=== PATIENT | female | born 1945 | race Caucasian/White ===

== ENCOUNTER 2016-10-06 17:24 | Inpatient (IN) ==
[2016-10-06] MEDS ORDERED: 0.9 % Sodium Chloride 500 ML IVC ONE (17:41)
[2016-10-06] MEDS ORDERED: Ondansetron 4 MG/2 ML VIAL IVP ONE (17:42)
[2016-10-06] MEDS ORDERED: Tdap (Boostrix) Vaccine 0.5 ML SYRINGE IM ONE (17:42)
[2016-10-06] MEDS ORDERED: *HR* Morphine 2 MG/ML SYRINGE IVP ONE (17:43)
[2016-10-06 18:45] LABS: Basophils # 0.1 K/mcL (0.0-0.2); Eosinophils # 0.2 K/mcL (0.0-0.6); Eosinophils % 2.6 %; Hematocrit 35.3 % (35.3-44.9); Hemoglobin 11.6 g/dL (11.5-15.4); Immature Granulocytes % 0.1 % (0-4); Immature Platelets 6.8 % (1.1-6.1); Lymphocytes # 1.7 K/mcL (0.6-4.6); Lymphocytes % 23.3 %; Mean Corpuscular HGB Conc 32.9 g/dL (31.6-35.5); Mean Corpuscular Hemoglobin 29.4 pg (28.0-33.3); Mean Corpuscular Volume 89.4 fL (83.0-100.0); Mean Platelet Volume 12.3 fL (9.4-12.4); Monocytes # 0.5 K/mcL (0.0-1.3); Monocytes % 6.6 %; Neutrophils # 4.8 K/mcL (1.6-8.9); Platelet Count 149 K/mcL (140-400); Red Blood Count 3.95 M/mcL (3.82-4.97); Red Cell Distribution Width 12.8 % (11.5-14.5); Segmented Neutrophils % 66.4 %
[2016-10-06 18:58] LABS: Calcium 9.4 mg/dL (8.6-10.8); Potassium 4.3 mEq/L (3.5-4.5)
--- NOTE | 2016-10-06 18:58 | Emergency Department Note ---
Disposition Clinical Impression: Troponin level elevated Syncope Qualifiers: Encounter type: initial encounter Disposition: Admitted As Inpatient Condition: Fair Referrals: NO,PCP [Primary Care Provider] - Forms: ED Satisfaction Letter Syncope HPI - General Chief Complaint: ED Fall Stated Complaint: fall Time Seen by Provider: 10/06/16 17:35 Source: EMS Limitations: no limitations Nursing Notes Reviewed: Yes Vital Signs Reviewed: Yes - History of Present Illness HPI Narrative: Patient presents with her daughter who helps with the history. The patient did have some lightheadedness while she was in the car and got to a store and the patient had lightheadedness and then had a syncopal episode. Had a few myoclonic jerks afterwards. Was confused for 8 or 9 minutes after. No urinary incontinence. No biting of the tongue or blood in the mouth. Patient denies any unilateral numbness or weakness of the extremities, slurred speech, facial droop or confusion. Does have pain in the head in the left forehead area and daughter notes a indentation in this area. The patient complains of significant discomfort at this location. She denies any neck pain. Daughter confirms the patient is not confused. The patient does not have any pain in the chest, or back. Does have some upper abdominal pain. She denies any recent vomiting or diarrhea but did have some one month ago. She has had some episode of dry heaves since the syncope but none immediately prior to the syncope. No blood in the urine or stool. Social history: Smoker in the past but no longer smoking. No alcohol. - Related Data Home Medications Medication Instructions Recorded Confirmed Amitriptyline [Elavil] 25 mg PO HS 10/06/16 10/06/16 Amlodipine Besylate 10 mg PO DAILY 10/06/16 10/06/16 Insulin Glargine,Hum.rec.anlog 35 - 50 units SQ HS 10/06/16 10/06/16 [Toujeo Solostar] Letrozole [Femara] 2.5 mg PO DAILY 10/06/16 10/06/16 Lisinopril [Zestril] 20 mg PO DAILY 10/06/16 10/06/16 Pravastatin Sodium [Pravachol] 80 mg PO HS 10/06/16 10/06/16 Allergies Allergy/AdvReac Type Severity Reaction Status Date / Time metformin Allergy Vomiting Verified 10/06/16 17:52 Penicillins Allergy Anaphylaxis Verified 10/06/16 17:52 Sulfa (Sulfonamide Allergy Anaphylaxis Verified 10/06/16 17:52 Antibiotics) Review of Systems: Constitutional: No fever Vision: No blurred vision ENT: No rhinorrhea Respiratory: No cough Allergic: No allergies : No blood in urine GI: No blood in stool Hematologic: No bruising Dermatologic: No skin rash Musculoskeletal: +pain in the extremities in the left distal forearm and bilateral knees Neuro: No numbness of the extremities Past Medical History - Past Medical History Medical history: Reports: cancer, CVA, diabetes Psychiatric history: Reports: no psych history - Social History Smoking Status: Former smoker Smokeless Tobacco Status: No Alcohol use: Reports: none Drug use: Reports: none Physical Exam CONSTITUTIONAL: Well-appearing; well-nourished; A&O X3, in no apparent distress HEAD: Normocephalic; there is a slight indentation over the left temporal area which is tender to palpation. No ecchymosis. No palpable fracture EYES: PERRL, EOMI, no scleral icterus NOSE: The nose is normal in appearance without rhinorrhea NECK: Supple without rigidity, no ABELINO, no pain with palpation posterior cervical spine RESP: Normal chest excursion with respiration; breath sounds clear and equal bilaterally; no wheezes, rhonchi, or rales CARD: Regular rhythm, without murmurs, rub or gallop ABD: Non-distended; non-tender, soft, without rigidity, rebound or guarding, Normal appearance without ecchymosis SKIN: Normal for age and race; warm and dry; no apparent lesions, no rash NEUROLOGICAL: Patient is alert and oriented times three. Cranial nerves III- XII are intact. Sensory and motor functions are intact. Strength is 5/5 for flexion and extension in all 4 extremities. Patellar DTRS are equal and intact. Finger to nose testing is equal and normal bilaterally. Extremities: There is some swelling anterior to the left knee with a superficial abrasion as well the patient does have a minimal skin tear over the left distal forearm lateral aspect but no pain on palpation of the bony prominence. Pulses are 2+ and equal 4 extremities - General Limitations: no limitations General appearance: alert Course Vital Signs Temperature 98.3 F 10/06/16 17:43 Pulse Rate 84 10/06/16 17:43 Respiratory Rate 18 10/06/16 17:43 Blood Pressure 196/88 07/26/17 17:43 O2 Sat by Pulse Oximetry 100 10/06/16 17:43 Temperature 98.3 F 10/06/16 17:43 Pulse Rate 84 10/06/16 19:25 Respiratory Rate 18 10/06/16 19:25 Blood Pressure 195/94 10/06/16 19:25 O2 Sat by Pulse Oximetry 97 10/06/16 19:25 Oxygen Delivery Oxygen Delivery Room Air Syncope - [facility] Narrative Medical decision making narrative: Labs, head CT, EKG is done and this does show a normal sinus rhythm with a rate of 81 without acute ischemic change. No evidence of Brugada, hypertrophic cardiomyopathy, prolonged QT or WPW. Patient is not confused. X-ray left knee will be done. Chest x-ray without acute abnormality. The patient will be admitted. I do not suspect seizure. 1857 Case is discussed with the hospitalist and the patient is accepted for admission. Concern for possible arrhythmia with her history today of syncope. The patient does have a minimally elevated troponin which can be further followed as a inpatient. I did review the patient's labs and head CT. 2017 - Medical Records Medical records reviewed: Yes I reviewed the patient's medical records. - Lab Data Lab results reviewed: Yes I reviewed the patient's lab results. Result diagrams: 10/06/16 17:51 10/06/16 17:51 Lab Results 10/06/16 10/06/16 10/06/16 Range/Units 17:51 17:51 17:51 WBC 7.2 (4.3-11.1) K/mcL RBC 3.95 (3.82-4.97) M/mcL Hgb 11.6 (11.5-15.4) g/dL Hct 35.3 (35.3-44.9) % MCV 89.4 (83.0-100.0) fL MCH 29.4 (28.0-33.3) pg MCHC 32.9 (31.6-35.5) g/dL RDW 12.8 (11.5-14.5) % Plt Count 149 (140-400) K/mcL MPV 12.3 (9.4-12.4) fL Immature Gran % 0.1 (0-4) % Seg Neutrophils % 66.4 % Lymphocytes % 23.3 % Monocytes % 6.6 % Eosinophils % 2.6 % Basophils % 1.0 % Neutrophils # 4.8 (1.6-8.9) K/mcL Lymphocytes # 1.7 (0.6-4.6) K/mcL Monocytes # 0.5 (0.0-1.3) K/mcL Eosinophils # 0.2 (0.0-0.6) K/mcL Basophils # 0.1 (0.0-0.2) K/mcL Immature Plt Fraction 6.8 H (1.1-6.1) % Sodium 138 (136-145) mEq/L Potassium 4.3 (3.5-4.5) mEq/L Chloride 104 (98-109) mEq/L Carbon Dioxide 29 (19-29) mEq/L BUN 34 H (7-20) mg/dL Creatinine 1.24 H (0.57-1.11) mg/dL Est GFR ( Amer) 51 L (> 60) Est GFR (Non-Af Amer) 42 L (> 60) BUN/Creatinine Ratio 27 H (6-26) Glucose 252 H (70-99) mg/dL Calculated Osmolality 302 H (280-300) Calcium 9.4 (8.6-10.8) mg/dL Total Bilirubin (0.2-1.2) mg/dL Direct Bilirubin (0.0-0.5) mg/dL Indirect Bilirubin (0.0-1.2) mg/dL AST (5-34) Units/L ALT (0-55) Units/L Alkaline Phosphatase (38-126) Units/L Troponin I 0.04 H* (0-0.03) ng/mL Serum Total Protein (6.0-8.3) g/dL Albumin (3.5-5.0) g/dL Globulin (2.4-3.5) g/dL Albumin/Globulin Ratio (1.1-2.2) Urine Color (Yellow) Urine Clarity (Clear) Urine pH (5.0-8.0) pH Units Ur Specific Elfrida (1.010-1.025) Urine Protein (Neg-Trace) mg/dL Urine Glucose (UA) (Normal) mg/dL Urine Ketones (Negative) mg/dL Urine Blood (Negative) Urine Nitrite (Negative) Urine Bilirubin (Negative) Urine Urobilinogen (Normal) mg/dL Ur Leukocyte Esterase (Negative) Urine Microscopic RBC (0-3) per hpf Urine Microscopic WBC (0-3) per hpf Ur Squamous Epith Cells (None-Few) per lpf Urine Bacteria (None-Few) per hpf Hyaline Casts (None-Few) per lpf 10/06/16 10/06/16 Range/Units 17:51 19:45 WBC (4.3-11.1) K/mcL RBC (3.82-4.97) M/mcL Hgb (11.5-15.4) g/dL Hct (35.3-44.9) % MCV (83.0-100.0) fL MCH (28.0-33.3) pg MCHC (31.6-35.5) g/dL RDW (11.5-14.5) % Plt Count (140-400) K/mcL MPV (9.4-12.4) fL Immature Gran % (0-4) % Seg Neutrophils % % Lymphocytes % % Monocytes % % Eosinophils % % Basophils % % Neutrophils # (1.6-8.9) K/mcL Lymphocytes # (0.6-4.6) K/mcL Monocytes # (0.0-1.3) K/mcL Eosinophils # (0.0-0.6) K/mcL Basophils # (0.0-0.2) K/mcL Immature Plt Fraction (1.1-6.1) % Sodium (136-145) mEq/L Potassium (3.5-4.5) mEq/L Chloride (98-109) mEq/L Carbon Dioxide (19-29) mEq/L BUN (7-20) mg/dL Creatinine (0.57-1.11) mg/dL Est GFR ( Amer) (> 60) Est GFR (Non-Af Amer) (> 60) BUN/Creatinine Ratio (6-26) Glucose (70-99) mg/dL Calculated Osmolality (280-300) Calcium (8.6-10.8) mg/dL Total Bilirubin 0.4 (0.2-1.2) mg/dL Direct Bilirubin 0.2 (0.0-0.5) mg/dL Indirect Bilirubin 0.2 (0.0-1.2) mg/dL AST 17 (5-34) Units/L ALT 21 (0-55) Units/L Alkaline Phosphatase 176 H (38-126) Units/L Troponin I (0-0.03) ng/mL Serum Total Protein 7.0 (6.0-8.3) g/dL Albumin 3.4 L (3.5-5.0) g/dL Globulin 3.6 H (2.4-3.5) g/dL Albumin/Globulin Ratio 0.9 L (1.1-2.2) Urine Color Yellow (Yellow) Urine Clarity Cloudy A (Clear) Urine pH 6.0 (5.0-8.0) pH Units Ur Specific Elfrida 1.016 (1.010-1.025) Urine Protein 30 H (Neg-Trace) mg/dL Urine Glucose (UA) 250 H (Normal) mg/dL Urine Ketones Negative (Negative) mg/dL Urine Blood Moderate H (Negative) Urine Nitrite Positive A (Negative) Urine Bilirubin Negative (Negative) Urine Urobilinogen Normal (Normal) mg/dL Ur Leukocyte Esterase Large H (Negative) Urine Microscopic RBC 3-5 H (0-3) per hpf Urine Microscopic WBC 50-100 H (0-3) per hpf Ur Squamous Epith Cells Many H (None-Few) per lpf Urine Bacteria Many H (None-Few) per hpf Hyaline Casts None Seen (None-Few) per lpf - Radiology Data Radiology results reviewed: Yes I reviewed the patient's radiology results. Critical Care Time Critical Care Time: No
[2016-10-06 19:02] LABS: Albumin 3.4 g/dL (3.5-5.0); Albumin/Globulin Ratio 0.9 (1.1-2.2); Bilirubin,Direct 0.2 mg/dL (0.0-0.5); Bilirubin,Indirect 0.2 mg/dL (0.0-1.2); Bilirubin,Total 0.4 mg/dL (0.2-1.2); Globulin 3.6 g/dL (2.4-3.5)
[2016-10-06] MEDS ORDERED: Aspirin 81 MG TAB.CHEW PO ONE (19:26)
[2016-10-06 20:02] LABS: Bilirubin,Urine Negative (Negative); Blood,Urine Moderate (Negative); Clarity,Urine Cloudy (Clear); Color,Urine Yellow (Yellow); Glucose,Urine (UA) 250 mg/dL (Normal); Ketones,Urine Negative (Negative); Leukocyte Esterase,Urine Large (Negative); Nitrite,Urine Positive (Negative); Protein,Urine 30 mg/dL (Neg-Trace); Specific Gravity,Urine 1.016 (1.010-1.025); Urobilinogen,Urine Normal (Normal)
[2016-10-06 20:04] LABS: Bacteria,Urine Many per hpf (None-Few); Hyaline Casts,Urine None Seen per lpf (None-Few); Squamous Epithelial Cell,Urine Many per lpf (None-Few); WBC,Urine 50-100 per hpf (0-3)
[2016-10-06] MEDS ORDERED: Naloxone 0.4 MG/ML INJ IVP PRN (21:13)
[2016-10-06] MEDS ORDERED: D5% in Water 1,000 ML IVC PRN (21:13)
[2016-10-06] MEDS ORDERED: Ondansetron ODT 4 MG TAB.RAPDIS SL PRN (21:13)
[2016-10-06] MEDS ORDERED: *HR* Dextrose 50 % in Water (Syg) 50 ML SYRINGE IVP PRN (21:13)
[2016-10-06] MEDS ORDERED: Dextrose Gel 15 GM PO PRN ×2 (21:13)
--- NOTE | 2016-10-06 21:13 | Internal Med History&Physical ---
<Dinesh Dumont - Last Filed: 10/06/16 21:18> Date of Encounter: 10/06/16 Time of Encounter: 21:09 Assessment and Plan (1) Syncope Current visit: Yes Status: Acute She does have questionable history of TIAs and also has uncontrolled hypertension, which may predispose her to syncope Head CT did demonstrate previous lacunar infarct of left caudate, but no urgent need for MRI at this time Will start her on low dose ASA and continue her Statin; obtain lipid panel in AM Cannot rule out metabolic or seizure/migraine as cause; will obtain TSH, B12, Folate Obtain echocardiogram, carotid ultrasound, orthostatics Appreciate PT/OT/SS consult Qualifiers: Encounter type: initial encounter Qualified Code(s): T67.1XXA - Heat syncope, initial encounter (2) Hypertension Current visit: Yes Status: Chronic Her blood pressure have been uncontrolled since arrival to ED, suspect due to non-compliance from having home meds Will resume her home Lisinopril and Amlodipine Add Hydalazine PRN for SBP > 180 Qualifiers: Hypertension type: essential hypertension Qualified Code(s): I10 - Essential (primary) hypertension (3) Troponin level elevated Current visit: Yes Status: Acute Initial troponin of 0.04 likely secondary to demand ischemia Will trend x2; no urgent need for cardio consult (4) Insulin dependent diabetes mellitus Current visit: Yes Status: Chronic Will start on low dose SSI ACHS accuchecks She does take Toujeo at home, so will administer basal insulin at 22 units levemir daily Obtain A1c in AM (5) DVT prophylaxis Current visit: Yes Status: Acute Heparin 5000 units BID Internal Medicine - H&P: HPI Chief complaint: syncope Admitted From: Home Plans for Post Hospital Care: Home History of present illness: Ms. Sargent is a 71 year old female who presents to the ED after passing out and falling. Daughter is at bedside and is able to assist with history as she was a witness to this episode. Patient earlier at 2 PM this afternoon was riding in her car when she became nauseous and she stopped that a gas station and wanted to buy diet Coke. While standing up near the counter, patient suddenly lost consciousness and fell, hitting her head chest and arm. She has no recollection of the event. Daughter states that patient was out for a short period of time but states that she was disoriented for about 10 minutes after regaining consciousness. She also had jerking hand movements during this time. Patient does admit to frequent falls at home over the past several months but attributes them to losing balance due to weak knees. She also reports previous episodes of TIA although she is unsure of exactly how often she passes out because she lives alone. Patient describes blurry vision bilaterally, but states this is chronic. She also has a headache located near the apex of her head. She denies any focal weakness, fevers, chills, chest pain, shortness of breath. She does complain of chronic diarrhea, diabetic neuropathy and urinary incontinence. Of note, she states she has been out of her Amlodipine for several days due to pharmacy errors. Past Med Surg Social Fam HX - Past Medical History Medical history: cancer, CVA, diabetes Psychiatric history: no psych history - Social History Smoking Status: Former smoker Smokeless Tobacco Status: No Alcohol use: none Drug use: none Internal Medicine - H&P: Meds Amitriptyline [Elavil] 25 mg PO HS 10/06/16 [History] Amlodipine Besylate 10 mg PO DAILY 10/06/16 [History] Insulin Glargine,Hum.rec.anlog [Toujeo Solostar] 35 - 50 units SQ HS 10/06/16 [ History] Letrozole [Femara] 2.5 mg PO DAILY 10/06/16 [History] Lisinopril [Zestril] 20 mg PO DAILY 10/06/16 [History] Pravastatin Sodium [Pravachol] 80 mg PO HS 10/06/16 [History] Allergies metformin Allergy (Verified 10/06/16 17:52) Vomiting Penicillins Allergy (Verified 10/06/16 17:52) Anaphylaxis Sulfa (Sulfonamide Antibiotics) Allergy (Verified 10/06/16 17:52) Anaphylaxis All Systems PM: A 10-system review of systems was performed and is negative for pertinent findings except as documented above in the HPI. - Constitutional Constitutional: falls, weakness, no chills, no fever(s), no night sweats - EENT Eyes: blurry vision, no change in vision, no discharge, no pain, no photophobia Ears: no ear discharge, no ear pain, no tinnitus Nose, mouth and throat: no dysphagia, no nasal discharge, no neck pain, no sore throat - Cardiovascular Cardiovascular ROS IM: lightheadedness, syncope, no chest pain, no diaphoresis, no dyspnea, no palpitations - Respiratory Respiratory: no cough, no dyspnea, no wheezing, no excessive phlegm production - Gastrointestinal Gastrointestinal: diarrhea, nausea, no abdominal pain, no hematemesis, no hematochezia, no melena, no vomiting - Genitourinary Genitourinary: urinary incontinence, no change in urinary stream, no dysuria, no flank pain, no hematuria - Musculoskeletal Musculoskeletal ROS IM: arthralgias (at the knees), numbness, tingling - Integumentary Integumentary IM: no rash, no unusual bruising - Neurological Neurological ROS: confusion, frequent falls, headache(s), numbness, tingling, no convulsions, no focal weakness, no tremor(s) - Hematologic/Lymphatic Hematologic/Lymphatic: no easy bruising - Constitutional Vitals: Temp Pulse Resp BP Pulse Ox 98.3 F 84 18 185/73 97 10/06/16 17:43 10/06/16 19:25 10/06/16 20:55 10/06/16 20:55 10/06/16 19:25 General appearance: Present: cooperative, pleasant, no acute distress, answers questions appropriately - Head Head exam: Present: atraumatic, normocephalic - Eye Eye exam: Present: PERRL, conjuntiva pink, sclera anicteric - Neck Neck exam general surgery: Present: supple, trachea midline. Absent: lymphadenopathy - Respiratory Respiratory exam: Present: CTAB. Absent: accessory muscle use, rales, rhonchi, wheezes - Cardiovascular Cardiovascular exam: Present: RRR, +S1, +S2. Absent: diastolic murmur, gallop, rubs, systolic murmur - GI/Abdominal GI/Abdominal exam: Present: normal bowel sounds, soft, no peritoneal signs. Absent: distended, tenderness - Extremities Exam Extremities exam: Present: warm, radial pulses palpable and symetrical. Absent : calf tenderness, cyanotic, pedal edema - Neurological Exam Neurological exam: Present: alert, CN II-XII intact, oriented X3, no focal deficits, strengths equal and symetr throughout. Absent: facial droop, speech deficit - Skin Skin exam: Present: dry, intact Internal Med - H&P Results - Labs CBC & Chem 7: 10/06/16 17:51 10/06/16 17:51 <Lloyd Quiñones - Last Filed: 10/06/16 22:03> Date of Encounter: 10/06/16 Internal Medicine - H&P: HPI History of present illness: Ms. Sargent is a 71 year old female All Systems PM: A 10-system review of systems was performed and is negative for pertinent findings except as documented above in the HPI. - Constitutional Vitals: Temp Pulse Resp BP Pulse Ox 97.8 F 82 16 194/85 98 10/06/16 21:50 10/06/16 21:50 10/06/16 21:50 10/06/16 21:50 10/06/16 21:50 Internal Med - H&P Results - Labs CBC & Chem 7: 10/06/16 17:51 10/06/16 17:51 - Attending Attestation I examined this patient and my medical decision-making was reviewed with the Resident Physician. I agree with the documented findings, disposition and treatment plan as described except to the extent set forth below. Patient is a 71-year-old lady who fell sick in a car subsequently developed a syncopal episode while at her rest with loss of consciousness hitting a rack in a garbage can. She is on medicines for IBS on blood pressure medicines and insulin. Reported history of TIA before in the past. Denies any significant dehydration. ROS 14 point review of systems reviewed. Pertinent positive or negative as per HPI or otherwise reviewed as negative General - AAO x 3 Psych - Appropriate affect/speech. No agitation Eyes - LOUIS. Eye lids intact. No scleral icterus ENT - Oral mucosa pink, dentition intact. External ear clear/dry/intact. No thyromegaly Lymphatics - No cervical/inguinal lympadenopathy Neuro - No gross peripheral or central neuro deficits with intact CN 2-12 exam Heart - Sinus. RRR. S1 and S2 present. No added HS/murmurs appreciated. No elevated JVD appreciated. No calf swellings/erythema Lung - Adequate air entry b/l, No crackes/wheezes appreciated GI - Soft, non-tender. No hepatosplenomegaly/ascities. BS+ - No CVA/suprapubic tenderness or palpable bladder distension Skin - Intact. No rash/petechiae/ecchymosis. Warm extremities MSK - Joints with normal ROM. No joint swellings Imaging reviewed by myself. Labs reviewed by myself Assessment and plan Syncopal episode Troponin leak - Carotid Doppler ultrasound, echocardiography - Orthostatic blood pressure, telemetry - Trend troponin
[2016-10-06] MEDS: Insulin LISPRO 300 UNITS/3 ML VIAL SQ SCH (23:50)
[2016-10-06] MEDS: Acetaminophen 325 MG TABLET PO PRN (23:51)
[2016-10-07 01:08] LABS: Basophils # 0.1 K/mcL (0.0-0.2); Basophils % 0.6 %; Eosinophils # 0.1 K/mcL (0.0-0.6); Eosinophils % 1.3 %; Hematocrit 37.8 % (35.3-44.9); Hemoglobin 12.2 g/dL (11.5-15.4); Immature Granulocytes % 0.4 % (0-4); Lymphocytes # 2.2 K/mcL (0.6-4.6); Lymphocytes % 26.7 %; Mean Corpuscular HGB Conc 32.3 g/dL (31.6-35.5); Mean Corpuscular Hemoglobin 28.5 pg (28.0-33.3); Mean Corpuscular Volume 88.3 fL (83.0-100.0); Mean Platelet Volume 11.6 fL (9.4-12.4); Monocytes # 0.5 K/mcL (0.0-1.3); Monocytes % 6.4 %; Neutrophils # 5.4 K/mcL (1.6-8.9); Platelet Count 177 K/mcL (140-400); Red Blood Count 4.28 M/mcL (3.82-4.97); Segmented Neutrophils % 64.6 %
[2016-10-07 01:17] LABS: BUN/Creatinine Ratio 27 (6-26); Blood Urea Nitrogen 28 mg/dL (7-20); Calcium 9.6 mg/dL (8.6-10.8); Carbon Dioxide 28 mEq/L (19-29); Chloride 107 mEq/L (98-109); Chol/HDL Ratio 2.9 (0-4.9); Cholesterol 119 mg/dL (< 200); Glucose 208 mg/dL (70-99); HDL Cholesterol 41 mg/dL (40-59); LDL Cholesterol,Calculated 66 mg/dL (0-99); Osmolality,Calculated 306 (280-300); Potassium 4.4 mEq/L (3.5-4.5); Sodium 142 mEq/L (136-145); Triglycerides 59 mg/dL (< 150); eGFR For African Americans > 60 (> 60); eGFR For Non-African Americans 53 (> 60)
[2016-10-07 01:25] LABS: Hemoglobin A1C 8.8 %
[2016-10-07 01:39] LABS: Thyroid Stimulating Hormone 0.617 mcIU/mL (0.350-4.840)
[2016-10-07 01:51] LABS: Folate 12.6 ng/mL (7.0-31.4)
[2016-10-07] MEDS: *HR* Heparin 5,000 UNIT/ML VIAL SQ SCH ×2 (06:14→17:33)
[2016-10-07] MEDS ORDERED: Lisinopril 20 MG TABLET PO SCH (09:00)
[2016-10-07] MEDS: Insulin LISPRO 300 UNITS/3 ML VIAL SQ SCH ×4 (09:53→21:39)
[2016-10-07] MEDS: Letrozole 2.5 MG TABLET PO SCH (09:54)
[2016-10-07] MEDS: amLODIPine 5 MG TABLET PO SCH (09:55)
[2016-10-07] MEDS: Aspirin 81 MG TAB.CHEW PO SCH (09:56)
[2016-10-07] MEDS: Levofloxacin 750 MG/150 ML 750 MG/150 ML BAG IVPB SCH (09:56)
[2016-10-07] MEDS: Acetaminophen 325 MG TABLET PO PRN (10:05)
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
[2016-10-07] MEDS ORDERED: *HR* Morphine 2 MG/ML SYRINGE IVP PRN (13:25)
[2016-10-07] MEDS ORDERED: *HR* HYDROcodone/Acet 5/325 mg TABLET PO PRN (13:25)
--- NOTE | 2016-10-07 14:15 | Electrocardiograph Report ---
[place] [address] Test Date: 2016-10-06 Pat Name: Christal Sargent Department: 104 Room: 3B23 Gender: F Intake Assessor: DAKOTA : 1945 Requested By: Guille Heredia Order Number: [id number] Reading MD: Galdino Jenkins MD Measurements Intervals [place] Rate: 81 P: 247 PA: 120 QRS: 59 QRSD: 86 T: 64 QT: 360 QTc: 397 Interpretive Statements SINUS RHYTHM Electronically Signed On 10-07-2016 14:13:37 EDT by Galdino Jenkins MD
[2016-10-07] MEDS: 0.9 % Sodium Chloride 1,000 ML IVC SCH (14:19)
--- NOTE | 2016-10-07 15:26 | Carotid Imaging Report ---
Carotid Duplex Patient Name:Christal Sargent Order Number:[id number] Procedure Date:10/07/2016 Date:1945ge:71 yrs Gender:Female Rt.BP:118 / 63 mmHgHeart Rate: Location:[facility] Room #: 3B23 Install Technician:Christal Almendarez, RVT Referring MD:Dinesh Dumont DO boiler house mechanic:Sydney Cruz MD Reading MD:Carlos Morris MD , FACS Primary Indications:Syncope Impressions: Findings: Bilateral proximal ICA has a severe, 60-79% stenosis. Recommendations: Risk Factor Modification and Follow up exam 6 months. After imaging the patient returned to their room. Test completed on 10/07/2016 at 7:50:00 am. Findings Carotid Duplex: Right: The right proximal common carotid artery has a PSV of 74 cm/s and a EDV of 11 cm/s. The right mid common carotid artery has a PSV of 56 cm/s and a EDV of 12 cm/s. The right distal common carotid artery has a PSV of 52 cm/s and a EDV of 14 cm/s. There is smooth calcified plaque. The right bifurcation has a PSV of 80 cm/s and a EDV of 10 cm/s. There is irregular calcified plaque. There is 60-79% stenosis in the right proximal internal carotid artery with a PSV of 208 cm/s and a EDV of 70 cm/s. There is irregular calcified plaque. The right mid internal carotid artery has a PSV of 73 cm/s and a EDV of 20 cm/s. The right distal internal carotid artery has a PSV of 57 cm/s and a EDV of 21 cm/s. The right eca has a PSV of 83 cm/s and a EDV of 10 cm/s. There is calcified plaque. The right vertebral artery has a PSV of 48 cm/s and a EDV of 14 cm/s. Left: The left proximal common carotid artery has a PSV of 80 cm/s and a EDV of 27 cm/s. There is 60-79% stenosis in the left mid common carotid artery with a PSV of 149 cm/s and a EDV of 41 cm/s. There is irregular calcified plaque. There is 60-79% stenosis in the left distal common carotid artery with a PSV of 167 cm/s and a EDV of 40 cm/s. There is irregular calcified plaque. There is 60-79% stenosis in the left bifurcation with a PSV of 141 cm/s and a EDV of 40 cm/s. There is irregular calcified plaque. There is 60-79% stenosis in the left proximal internal carotid artery with a PSV of 165 cm/s and a EDV of 51 cm/s. There is irregular calcified plaque. The left mid internal carotid artery has a PSV of 98 cm/s and a EDV of 40 cm/s. The left distal internal carotid artery has a PSV of 99 cm/s and a EDV of 37 cm/s. The left eca has a PSV of 103 cm/s and a EDV of 12 cm/s. There is calcified plaque. The left vertebral artery has a PSV of 82 cm/s and a EDV of 28 cm/s. Prior Study: No prior study available for comparison. Carotid Results Right PSV EDV Assessment Proximal CCA 74 11 Mid CCA 56 12 Distal CCA 52 14 Bifurcation 80 10 Proximal ICA 208 70 Mid ICA 73 20 Distal ICA 57 21 ECA 83 10 Vertebral Artery 48 14 Left PSV EDV Assessment Proximal CCA 80 27 Mid CCA 149 41 Distal CCA 167 40 Bifurcation 141 40 Proximal ICA 165 51 Mid ICA 98 40 Distal ICA 99 37 ECA 103 12 Vertebral Artery 82 28 Ratio's Right ICA/CCA Ratio: 3.71 ICA/CCA Values: 208/56 Left ICA/CCA Ratio: 1.10 ICA/CCA Values: 165/149 Updated by Carlos Morris MD, FACS on 10/07/2016 3:20:57 PM Carlos Morris MD electronically signed on 10/07/2016 3:21:36 PM with status of Final
[2016-10-07] MEDS: Insulin DETEMIR 100 UNIT/ML X5UNITS SQ SCH (21:34)
[2016-10-08] MEDS: 0.9 % Sodium Chloride 1,000 ML IVC SCH ×2 (03:40→20:00)
[2016-10-08 05:42] LABS: BUN/Creatinine Ratio 29 (6-26); Blood Urea Nitrogen 25 mg/dL (7-20); Carbon Dioxide 25 mEq/L (19-29); Chloride 110 mEq/L (98-109); Glucose 92 mg/dL (70-99); Osmolality,Calculated 298 (280-300); Potassium 3.9 mEq/L (3.5-4.5); Sodium 142 mEq/L (136-145); eGFR For African Americans > 60 (> 60); eGFR For Non-African Americans > 60 (> 60)
[2016-10-08] MEDS: *HR* Heparin 5,000 UNIT/ML VIAL SQ SCH ×2 (05:54→18:03)
[2016-10-08] MEDS: amLODIPine 5 MG TABLET PO SCH (08:22)
[2016-10-08] MEDS: Lisinopril 20 MG TABLET PO SCH (08:23)
[2016-10-08] MEDS: Letrozole 2.5 MG TABLET PO SCH (08:23)
[2016-10-08] MEDS: Aspirin 81 MG TAB.CHEW PO SCH (08:23)
[2016-10-08] MEDS: Insulin LISPRO 300 UNITS/3 ML VIAL SQ SCH ×4 (08:29→22:06)
[2016-10-08] MEDS: Levofloxacin 750 MG/150 ML 750 MG/150 ML BAG IVPB SCH (09:17)
--- NOTE | 2016-10-08 16:15 | Orthopedic Consult Note ---
Date of Encounter: 10/08/16 Time of Encounter: 13:00 Assessment and Plan (1) Knee pain, bilateral Current Visit: Yes Status: Chronic Given her recent falls and increasing frequency of falls along with the concerns of the admitting team, believe she would benefit from outpatient follow up for her knees once immediate health concerns have been addressed. Patient seems to be desiring knee replacement however given patient's current status she would benefit from optimization. Offered patient follow up with our office this coming week and patient gladly accepted offer. While inpatient - strongly recommend patient participate in therapy for conditioning, gait, and ADL training. Would recommend pain management with NSAIDs and/or Acetaminophen for osteoarthritis dosing if appropriate by admitting team's perspective. Thank you for this consultation. Qualifiers: Chronicity: chronic Qualified Code(s): M25.561 - Pain in right knee; M25.562 - Pain in left knee; G89.29 - Other chronic pain History of Present Illness Chief complaint: bilateral knee pain HPI: Ms. Sargent is a 71 year old female admitted to hospital following a fall. Patient has c/o bilateral knee pain for quite some time per patient and her granddaughter who is at the bedside. Patient states approximately 10-12 years ago she met with an orthopedic surgeon that gave her a knee injection and told her her next step would be joint replacement. She states at the time she was driving semi-trucks for a living and could not take time off for any surgery - stating if she didn't work she would not have been able to afford housing, etc. Patient states that she has an appt for with an orthopedic physician in [place], [place] slated for late October. She states that she made this appt some time ago but is now afraid to go home because she lives alone or be active at all secondary to the severity of this most recent fall. She denies any history of recent physical therapy. Patient asking about options regarding her knees. On exam patient bilateral knees, skin intact - abrasion noted to anterior left knee. Patient has tenderness to palpation of bilateral knees along joint line, positive patellar grind and ballotment bilaterally, no effusion noted. Negative for instability on exam. No muscular atrophy noted. Neurovascularly intact bilaterally. XR/XR knee BI 3V IMPRESSION: 1. Tricompartmental degenerative changes bilaterally, right worse than left. 2. No acute osseous abnormality. 3. Moderate to large left joint effusion. D/ / 10/08/2016 09:05:59 Megan Paulson MD / eddie Interpreting Provider: Megan Paulson MD Given her recent falls and increasing frequency of falls along with the concerns of the admitting team, believe she would benefit from outpatient follow up for her knees once immediate health concerns have been addressed. Patient seems to be desiring knee replacement however given patient's current status she would benefit from optimization. Offered patient follow up with our office this coming week and patient gladly accepted offer. While inpatient - strongly recommend patient participate in therapy for conditioning, gait, and ADL training. Would recommend pain management with NSAIDs and/or Acetaminophen for osteoarthritis dosing if appropriate by admitting team's perspective. Thank you for this consultation. Past Med Surg Social Fam HX - Past Medical History Medical history: cancer, CVA, diabetes Psychiatric history: no psych history - Past Surgical History Surgical History: appendectomy, cancer surgery, cholecystectomy, orthopedic, other - Social History Smoking Status: Former smoker Smokeless Tobacco Status: No Alcohol use: none Drug use: none - Family History Mother Hx Family Neuromuscular Disorders: Yes (CEREBRAL VASCULAR ACCIDENT.) Medications and Allergies Amitriptyline [Elavil] 25 mg PO HS 10/06/16 [History] Amlodipine Besylate 10 mg PO DAILY 10/06/16 [History] Insulin Glargine,Hum.rec.anlog [Toujeo Solostar] 35 - 50 units SQ HS 10/06/16 [ History] Letrozole [Femara] 2.5 mg PO DAILY 10/06/16 [History] Lisinopril [Zestril] 20 mg PO DAILY 10/06/16 [History] Pravastatin Sodium [Pravachol] 80 mg PO HS 10/06/16 [History] Allergies metformin Allergy (Verified 10/06/16 17:52) Vomiting Penicillins Allergy (Verified 10/06/16 17:52) Anaphylaxis Sulfa (Sulfonamide Antibiotics) Allergy (Verified 10/06/16 17:52) Anaphylaxis All Systems Reviewed: A 10-system review of systems was performed and is negative for pertinent findings except as documented above in the HPI. Physical Exam - Constitutional Vitals: Temp Pulse Resp BP Pulse Ox 97.6 F 79 14 179/82 96 10/08/16 14:57 10/08/16 14:57 10/08/16 14:57 10/08/16 14:57 10/08/16 14:57 Results - Labs Result Diagrams: 10/07/16 00:36 10/08/16 04:29 Labs: Abnormal lab results Immature Plt Fraction 6.8 % (1.1-6.1) H 10/06/16 17:51 Chloride 110 mEq/L (98-109) H 10/08/16 04:29 BUN 25 mg/dL (7-20) H 10/08/16 04:29 BUN/Creatinine Ratio 29 (6-26) H 10/08/16 04:29 POC Glucose 154 (58-89) H 10/07/16 16:26 Hemoglobin A1c 8.8 % (-5.6) H 10/07/16 00:36 Alkaline Phosphatase 176 Units/L (38-126) H 10/06/16 17:51 Troponin I 0.04 ng/mL (0-0.03) H* 10/07/16 05:55 Albumin 3.4 g/dL (3.5-5.0) L 10/06/16 17:51 Globulin 3.6 g/dL (2.4-3.5) H 10/06/16 17:51 Albumin/Globulin Ratio 0.9 (1.1-2.2) L 10/06/16 17:51 Urine Clarity Cloudy (Clear) A 10/06/16 19:45 Urine Protein 30 mg/dL (Neg-Trace) H 10/06/16 19:45 Urine Glucose (UA) 250 mg/dL (Normal) H 10/06/16 19:45 Urine Blood Moderate (Negative) H 10/06/16 19:45 Urine Nitrite Positive (Negative) A 10/06/16 19:45 Ur Leukocyte Esterase Large (Negative) H 10/06/16 19:45 Urine Microscopic RBC 3-5 per hpf (0-3) H 10/06/16 19:45 Urine Microscopic WBC 50-100 per hpf (0-3) H 10/06/16 19:45 Ur Squamous Epith Cells Many per lpf (None-Few) H 10/06/16 19:45 Urine Bacteria Many per hpf (None-Few) H 10/06/16 19:45 All other labs normal. Consult Discharge Plan - Plan Referrals: Sydney Cruz MD [Primary Care Provider] - Ryland Garrett MD [Partnered Physician] - 10/13/16 12:50 pm
--- NOTE | 2016-10-08 16:51 | Internal Med Progress Note ---
Date of Encounter: 10/08/16 Time of Encounter: 14:00 - Assessment and plan (1) Syncope Current Visit: Yes Status: Acute Assessment and plan: Patient and family stating that prior to July, she only had minor falls eveyr few months. They state that since July, she has had 5 major falls with likely syncopal involvement. Patient does not think her urine has been tested since July, so her UTI and initial dehydration could be playing a role. Her knee pain also limits her ROM and ability to ambulate. She initially stated that she did not want to participate in physical therapy until "you fix my knees." Obtained plain films of her knees revealed generative changes right worse than left with a joint effusion of the left. Orthopedics were brought on board and have recommended rehabilitation with further workup outpatient for her knees. She will follow up with orthopedics next week. Patient is now amenable to participating in physical therapy and she is amenable to going to inpatient rehabilitation. After much discussion, it appears that the patient would like to stay in this immediate area. Of note, she and all of her family are from the [facility] but patient states that she would like to stay local for her rehabilitation. food services director on board. Given that she has [employer], the precertification will likely take until Tuesday, patient and family have been advised. She is not safe to be discharged home in the meantime due to significant risk for fall. ITS Impressions Knee X-Ray 10/08/16 08:01 IMPRESSION: 1. Tricompartmental degenerative changes bilaterally, right worse than left. 2. No acute osseous abnormality. 3. Moderate to large left joint effusion. D/ / 10/08/2016 09:05:59 Megan Paulson MD / eddie Interpreting Provider: Megan Paulson MD 10/07/16 Unclear causation at this time but appears to be multifocal. Patient stating that her falls are becoming more frequent and she states that she is now scared to go home. When she describes her numerous falls, they appear to be consistent with syncopal episodes rather than with mechanical falls. Patient is remembering standing in her kitchen and extension she remembers she is sitting on the ground. She was also bringing in groceries and the next thing she remembered is that she was face down in the mud and her neighbors were pulling her out of the mud puddle. Head CT negative for acute processes in revealing old lacunar infarct. Cervical spine CT negative. Chest x-ray negative. She does have a urinary tract infection and evidence of dehydration with acute kidney injury. Treating with IV fluids and antibiotics. Echocardiogram unremarkable with ejection fraction of 70% and mild diastolic dysfunction. Initial carotid ultrasound revealing 60-79% stenosis of bilaterally, awaiting official read. OT and PT consultations are pending. I attempted asked the patient if she would be interested in home health or inpatient stay but I could not get a straight answer out of her. In conversation, patient is incredibly verbose and does not answer questions directly. She does however have a lengthy history of what she refers to as being "stubborn and Bullheaded." She does however endorse that she is scared to go home stating that she does not feel safe at home as she lives alone. She states moving in with her children is not an option. She also went to inpatient rehabilitation after her right great toe was amputated last year. She states that after 2-1/2 days, she wrote a 15 page complaint paper and since that time, she has refused to even discuss ECF placement with her family. ITS Impressions Chest X-Ray 10/06/16 17:39 IMPRESSION: No acute process. D/ / Sandro Pacheco MD / Sandro Pacheco MD Interpreting Provider: Sandro Pacheco MD Cervical Spine CT 10/06/16 17:40 IMPRESSION: No acute abnormality of the cervical spine. D/ / Sandro Pacheco MD / Sandro Pacheco MD Interpreting Provider: Sandro Pacheco MD Head CT 10/06/16 17:40 IMPRESSION: No acute intracranial abnormality. Chronic microvascular ischemic changes. 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 D/ / Gordy Corbett MD / Gordy Corbett MD Interpreting Provider: Gordy Corbett MD Echocardiogram impressions: Normal LV systolic function, LVEF 70%. Mild concentric left ventricular hypertrophy. Mild left ventricular diastolic dysfunction. Normal right ventricular size and function. No significant valvular dysfunction. Unable to estimate RVSP due to lack of TR jet. 10/07/16 09:21 - Vascular Preliminary by Christal Almendarez Acct Num: [id number] : 1945 Patient Age: 71 Patient has possible 60-79% in R prox ICA & in L CCA, Bifurcation & prox ICA. Physician review is pending. Jayla Almendarez RDCS, RVT 10/07/16. Qualifiers: Encounter type: initial encounter Qualified Code(s): T67.1XXA - Heat syncope, initial encounter (2) Falls frequently Current Visit: Yes Status: Acute Assessment and plan: See prior note for syncope (3) UTI (urinary tract infection) Current Visit: Yes Status: Acute Assessment and plan: Urinalysis consistent with urinary tract infection. Urine culture revealing Escherichia coli with multiple resistances. Patient has a lengthy history of urinary tract infections and also has a bladder stimulator in place. Given her anaphylactic reactions to penicillin and sulfa as well as resistances to ampicillin, cefazolin, fluoroquinolones, will treat patient with ceftriaxone and monitor closely for signs of possible adverse reactions. Patient is a bit misunderstood on how a woman contracts a UTI. She is convince that she does not have an infection because she has not had "personal relations " in a long time. STI vs UTI teaching attempted without success- daughter is at the bedside and will continue to educate the patient. PCN and sulfa allergy - placed on Levofloxacin- urine culture pending. Patient has a lengthy history of only drinking coffee and diet pop all day, encourage to drink more water. Continue gentle IV fluids (4) Knee pain, bilateral Current Visit: Yes Status: Chronic Assessment and plan: acute on chronic and progressively worsening. She is following up outpatient with her PCP and has been referred to an orthopedic doctor in [place] at this appointment is not for another month. She states she would like to see our orthopedic team as she can see them next week. Orthopedics was brought on board and they will follow up with her for further workup and evaluation outpatient next week. We will send inpatient rehabilitation in the meantime. She states that she has never seen an orthopedic doctor regarding her knee pain. (5) KAITY (acute kidney injury) Current Visit: Yes Status: Resolved (6) Diabetic neuropathy Current Visit: Yes Status: Chronic Assessment and plan: Patient states she has been prescribed gabapentin but states that she turns into a "zombie." Patient stating that 100 mg of gabapentin 3 times a day is not enough to help her pain but when she increased to 200 mg 3 times a day, she becomes what she refers to as a zombie. We will initiate gabapentin at bedtime only and monitor her response. Qualifiers: Diabetes mellitus type: type 2 Diabetes mellitus complication detail: with other neurological complication Qualified Code(s): E11.49 - Type 2 diabetes mellitus with other diabetic neurological complication (7) Status post amputation of right great toe Current Visit: Yes Status: Chronic Assessment and plan: Last year, site has healed (8) Troponin level elevated Current Visit: Yes Status: Acute Assessment and plan: Suspect demand ischemia given that she had acute kidney injury upon arrival. Patient denies chest pain or shortness of breath. Low suspicion for acute coronary syndrome. (9) DVT prophylaxis Current Visit: Yes Status: Acute Assessment and plan: Subcutaneous heparin (10) Hypertension Current Visit: Yes Status: Chronic Assessment and plan: Uncontrolled. At home, patient is on lisinopril 20 mg daily, amlodipine 10 mg daily. Renal function returned to normal so her lisinopril dosage was increased to 40 yet she remains hypertensive, low-dose beta mukul and monitor. We will continue to trend and adjust medications as indicated. IV hydralazine as needed Qualifiers: Hypertension type: essential hypertension Qualified Code(s): I10 - Essential (primary) hypertension (11) Insulin dependent diabetes mellitus Current Visit: Yes Status: Chronic Assessment and plan: Moderately controlled with an A1c of 8.8%. Continue sliding scale while admitted. - Subjective Interval history: Patient seen and examined. On examination, patient sitting upright in bed conversing with her daughter. Patient is again stating that she does not feel safe going home as she is afraid she will continue to fall. She states that her pain is controlled and denies other concerns. She states she is eating well. - Constitutional Vitals: Temp Pulse Resp BP Pulse Ox 97.6 F 79 14 179/82 96 10/08/16 14:57 10/08/16 14:57 10/08/16 14:57 10/08/16 14:57 10/08/16 14:57 General appearance: Present: cooperative, A&O X 3, pleasant, no acute distress, answers questions appropriately - Head Head exam: Present: atraumatic, normocephalic - Eye Eye exam: Present: PERRL, conjuntiva pink, sclera anicteric Pupils: Present: PERRL - Neck Neck exam general surgery: Present: supple, trachea midline. Absent: lymphadenopathy - Respiratory Respiratory exam: Present: decreased breath sounds. Absent: accessory muscle use, rales, respiratory distress, rhonchi, wheezes - Cardiovascular Cardiovascular exam: Present: RRR, +S1, +S2. Absent: diastolic murmur, gallop, rubs, systolic murmur - GI/Abdominal GI/Abdominal exam: Present: normal bowel sounds, soft, no peritoneal signs. Absent: distended, tenderness - Extremities Exam Extremities exam: Present: warm, radial pulses palpable and symetrical. Absent : calf tenderness, cyanotic, pedal edema - Expanded Lower Extremities Exam Knee exam: Present: tenderness. Absent: normal inspection Neuro vascular tendon exam: Present: no vascular compromise - Neurological Exam Neurological exam: Present: alert, CN II-XII intact, oriented X3, no focal deficits, strengths equal and symetr throughout. Absent: pronater drift, facial droop, speech deficit - Skin Skin exam: Present: dry, intact, normal color, warm Internal Medicine: Result - Labs CBC & Chem 7: 10/07/16 00:36 10/08/16 04:29 Labs: BMP 10/08/16 04:29 Sodium 142 Potassium 3.9 Chloride 110 H Carbon Dioxide 25 BUN 25 H Creatinine 0.85 Glucose 92 Calcium 9.0 - Impressions Impressions Knee X-Ray 10/08/16 08:01 IMPRESSION: 1. Tricompartmental degenerative changes bilaterally, right worse than left. 2. No acute osseous abnormality. 3. Moderate to large left joint effusion. D/ / 10/08/2016 09:05:59 Megan Paulson MD / eddie Interpreting Provider: Megan Paulson MD Consult Discharge Plan - Plan Referrals: Ryland Garrett MD [Partnered Physician] - 10/13/16 12:50 pm Sydney Cruz MD [Primary Care Provider] -
[2016-10-08] MEDS: Celecoxib 100 MG CAPSULE PO SCH ×2 (22:05→22:59)
[2016-10-08] MEDS: Gabapentin 100 MG CAPSULE PO SCH ×2 (22:05→23:00)
[2016-10-08] MEDS: Insulin DETEMIR 100 UNIT/ML X5UNITS SQ SCH (22:06)
[2016-10-09] MEDS: *HR* Heparin 5,000 UNIT/ML VIAL SQ SCH ×2 (06:14→17:29)
[2016-10-09] MEDS: Insulin LISPRO 300 UNITS/3 ML VIAL SQ SCH ×4 (08:28→20:32)
[2016-10-09] MEDS: 0.9 % Sodium Chloride 1,000 ML IVC SCH (09:02)
[2016-10-09] MEDS: Letrozole 2.5 MG TABLET PO SCH (09:03)
[2016-10-09] MEDS: Aspirin 81 MG TAB.CHEW PO SCH (09:03)
[2016-10-09] MEDS: Lisinopril 20 MG TABLET PO SCH (09:03)
[2016-10-09] MEDS: amLODIPine 5 MG TABLET PO SCH (09:03)
--- NOTE | 2016-10-09 12:50 | Internal Med Progress Note ---
Date of Encounter: 10/09/16 Time of Encounter: 10:00 - Assessment and plan (1) Syncope Current Visit: Yes Status: Acute Assessment and plan: Patient and family stating that prior to July, she only had minor falls every few months. They state that since July, she has had 5 major falls with likely syncopal involvement. Patient does not think her urine has been tested since July, so her UTI and initial dehydration could be playing a role. Her knee pain also limits her ROM and ability to ambulate. She initially stated that she did not want to participate in physical therapy until "you fix my knees." Obtained plain films of her knees revealed generative changes right worse than left with a joint effusion of the left. Orthopedics were brought on board and have recommended rehabilitation with further workup outpatient for her knees. She will follow up with orthopedics next week. Patient is now amenable to participating in physical therapy and she is amenable to going to inpatient rehabilitation. After much discussion, it appears that the patient would like to stay in this immediate area. Of note, she and all of her family are from the [facility] but patient states that she would like to stay local for her rehabilitation. financial services specialist on board and given that she has [employer], the precertification will likely take until Tuesday, patient and family have been advised. She is not safe to be discharged home in the meantime due to significant risk for fall. ITS Impressions Knee X-Ray 10/08/16 08:01 IMPRESSION: 1. Tricompartmental degenerative changes bilaterally, right worse than left. 2. No acute osseous abnormality. 3. Moderate to large left joint effusion. D/ / 10/08/2016 09:05:59 Megan Paulson MD / eddie Interpreting Provider: Megan Paulson MD 10/07/16 Unclear causation at this time but appears to be multifocal. Patient stating that her falls are becoming more frequent and she states that she is now scared to go home. When she describes her numerous falls, they appear to be consistent with syncopal episodes rather than with mechanical falls. Patient is remembering standing in her kitchen and extension she remembers she is sitting on the ground. She was also bringing in groceries and the next thing she remembered is that she was face down in the mud and her neighbors were pulling her out of the mud puddle. Head CT negative for acute processes in revealing old lacunar infarct. Cervical spine CT negative. Chest x-ray negative. She does have a urinary tract infection and evidence of dehydration with acute kidney injury. Treating with IV fluids and antibiotics. Echocardiogram unremarkable with ejection fraction of 70% and mild diastolic dysfunction. Initial carotid ultrasound revealing 60-79% stenosis of bilaterally, awaiting official read. OT and PT consultations are pending. I attempted asked the patient if she would be interested in home health or inpatient stay but I could not get a straight answer out of her. In conversation, patient is incredibly verbose and does not answer questions directly. She does however have a lengthy history of what she refers to as being "stubborn and Bullheaded." She does however endorse that she is scared to go home stating that she does not feel safe at home as she lives alone. She states moving in with her children is not an option. She also went to inpatient rehabilitation after her right great toe was amputated last year. She states that after 2-1/2 days, she wrote a 15 page complaint paper and since that time, she has refused to even discuss ECF placement with her family. ITS Impressions Chest X-Ray 10/06/16 17:39 IMPRESSION: No acute process. D/ / Sandro Pacheco MD / Sandro Pacheco MD Interpreting Provider: Sandro Pacheco MD Cervical Spine CT 10/06/16 17:40 IMPRESSION: No acute abnormality of the cervical spine. D/ / Sandro Pacheco MD / Sandro Pacheco MD Interpreting Provider: Sandro Pacheco MD Head CT 10/06/16 17:40 IMPRESSION: No acute intracranial abnormality. Chronic microvascular ischemic changes. 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 D/ / Gordy Corbett MD / Gordy Corbett MD Interpreting Provider: Gordy Corbett MD Echocardiogram impressions: Normal LV systolic function, LVEF 70%. Mild concentric left ventricular hypertrophy. Mild left ventricular diastolic dysfunction. Normal right ventricular size and function. No significant valvular dysfunction. Unable to estimate RVSP due to lack of TR jet. 10/07/16 09:21 - Vascular Preliminary by Christal Almendarez Acct Num: [id number] : 1945 Patient Age: 71 Patient has possible 60-79% in R prox ICA & in L CCA, Bifurcation & prox ICA. Physician review is pending. Jayla Almendarez RDCS, RVT 10/07/16. Qualifiers: Encounter type: initial encounter Qualified Code(s): T67.1XXA - Heat syncope, initial encounter (2) Falls frequently Current Visit: Yes Status: Acute Assessment and plan: See prior note for syncope (3) UTI (urinary tract infection) Current Visit: Yes Status: Acute Assessment and plan: Urinalysis consistent with urinary tract infection. Urine culture revealing Escherichia coli with multiple resistances. Patient has a lengthy history of urinary tract infections and also has a bladder stimulator in place. Given her anaphylactic reactions to penicillin and sulfa as well as resistances to ampicillin, cefazolin, fluoroquinolones, will treat patient with ceftriaxone and she has been monitored closely and has had no signs of adverse reactions up to this point. Patient is a bit misunderstood on how a woman contracts a UTI. She is convince that she does not have an infection because she has not had "personal relations " in a long time. STI vs UTI teaching attempted without success- daughter is at the bedside and will continue to educate the patient. Patient has a lengthy history of only drinking coffee and diet pop all day, encourage to drink more water. Continue gentle IV fluids (4) Knee pain, bilateral Current Visit: Yes Status: Chronic Assessment and plan: acute on chronic and progressively worsening. She is following up outpatient with her PCP and has been referred to an orthopedic doctor in [place] but this appointment is not for another month. She states she would like to see our orthopedic team as she can see them next week. Orthopedics was brought on board and they will follow up with her for further workup and evaluation outpatient next week. We will send inpatient rehabilitation in the meantime. She states that she has never seen an orthopedic doctor regarding her knee pain. (5) KAITY (acute kidney injury) Current Visit: Yes Status: Resolved (6) Diabetic neuropathy Current Visit: Yes Status: Chronic Assessment and plan: Patient states she has been prescribed gabapentin but states that she turns into a "zombie." Patient stating that 100 mg of gabapentin 3 times a day is not enough to help her pain but when she increased to 200 mg 3 times a day, she becomes what she refers to as a zombie. She appears to be tolerating gabapentin at bedtime only Qualifiers: Diabetes mellitus type: type 2 Diabetes mellitus complication detail: with other neurological complication Qualified Code(s): E11.49 - Type 2 diabetes mellitus with other diabetic neurological complication (7) Status post amputation of right great toe Current Visit: Yes Status: Chronic Assessment and plan: Last year, site has healed (8) Troponin level elevated Current Visit: Yes Status: Acute Assessment and plan: Suspect demand ischemia given that she had acute kidney injury upon arrival. Patient denies chest pain or shortness of breath. Low suspicion for acute coronary syndrome. (9) DVT prophylaxis Current Visit: Yes Status: Acute Assessment and plan: Subcutaneous heparin (10) Hypertension Current Visit: Yes Status: Chronic Assessment and plan: Better controlled today. At home initially, patient was on lisinopril 20 mg daily, amlodipine 10 mg daily. Her renal function returned to normal so her lisinopril dosage was increased to 20 and she remained hypertensive so low-dose metoprolol was added and her heart rate and blood pressure are better controlled today, we will continue to trend. IV hydralazine as needed Qualifiers: Hypertension type: essential hypertension Qualified Code(s): I10 - Essential (primary) hypertension (11) Insulin dependent diabetes mellitus Current Visit: Yes Status: Chronic Assessment and plan: Moderately controlled with an A1c of 8.8%. Continue sliding scale while admitted. - Subjective Interval history: Patient seen and examined. On examination, patient sitting upright in her chair participating in physical therapy. She states that overall she feels better. She states she is able to get to the bedside commode well. She states she is not willing to try to ambulate to the bathroom at this time even while using a walker because she states that she is simply too afraid that she is in a fall again. She has been instructed to let staff know when she needs to get up. She states she is eating well and denies concerns at this time. - Constitutional Vitals: Temp Pulse Resp BP Pulse Ox 97.8 F 74 16 150/74 99 10/09/16 11:41 10/09/16 11:41 10/09/16 11:41 10/09/16 11:41 10/09/16 11:41 General appearance: Present: cooperative, A&O X 3, pleasant, no acute distress, answers questions appropriately - Head Head exam: Present: atraumatic, normocephalic - Eye Eye exam: Present: PERRL, conjuntiva pink, sclera anicteric Pupils: Present: PERRL - Neck Neck exam general surgery: Present: supple, trachea midline. Absent: lymphadenopathy - Respiratory Respiratory exam: Present: CTAB. Absent: accessory muscle use, rales, respiratory distress, rhonchi, wheezes - Cardiovascular Cardiovascular exam: Present: RRR, +S1, +S2. Absent: diastolic murmur, gallop, rubs, systolic murmur - GI/Abdominal GI/Abdominal exam: Present: distended, normal bowel sounds, soft, no peritoneal signs. Absent: tenderness - Extremities Exam Extremities exam: Present: warm, radial pulses palpable and symetrical. Absent : calf tenderness, cyanotic, pedal edema - Expanded Lower Extremities Exam Knee exam: Present: tenderness Lower Leg exam: Present: tenderness Neuro vascular tendon exam: Present: no vascular compromise Gait: Present: observed and limited by pain - Neurological Exam Neurological exam: Present: alert, CN II-XII intact, oriented X3, no focal deficits, strengths equal and symetr throughout. Absent: pronater drift, facial droop, speech deficit - Skin Skin exam: Present: dry, intact, pallor, warm Internal Medicine: Result - Labs CBC & Chem 7: 10/07/16 00:36 10/08/16 04:29 Consult Discharge Plan - Plan Referrals: Ryland Garrett MD [Partnered Physician] - 10/13/16 12:50 pm Sydney Cruz MD [Primary Care Provider] -
[2016-10-09] MEDS: Gabapentin 100 MG CAPSULE PO SCH (20:31)
[2016-10-09] MEDS: Insulin DETEMIR 100 UNIT/ML X5UNITS SQ SCH (20:32)
[2016-10-10] MEDS: *HR* Heparin 5,000 UNIT/ML VIAL SQ SCH ×2 (06:15→16:54)
[2016-10-10] MEDS: 0.9 % Sodium Chloride 1,000 ML IVC SCH ×2 (06:15→09:33)
[2016-10-10] MEDS: Lisinopril 20 MG TABLET PO SCH (09:32)
[2016-10-10] MEDS: Letrozole 2.5 MG TABLET PO SCH (09:32)
[2016-10-10] MEDS: Aspirin 81 MG TAB.CHEW PO SCH (09:32)
[2016-10-10] MEDS: amLODIPine 5 MG TABLET PO SCH (09:32)
[2016-10-10] MEDS: Insulin LISPRO 300 UNITS/3 ML VIAL SQ SCH ×4 (09:33→21:09)
[2016-10-10] MEDS: Acetaminophen 325 MG TABLET PO PRN (09:33)
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
[2016-10-10] MEDS: Gabapentin 100 MG CAPSULE PO SCH (21:08)
[2016-10-10] MEDS: Insulin DETEMIR 100 UNIT/ML X5UNITS SQ SCH (21:09)
[2016-10-11] MEDS: *HR* Heparin 5,000 UNIT/ML VIAL SQ SCH ×2 (05:30→17:43)
[2016-10-11] MEDS: Insulin LISPRO 300 UNITS/3 ML VIAL SQ SCH ×4 (08:54→20:19)
[2016-10-11] MEDS: Letrozole 2.5 MG TABLET PO SCH (08:55)
[2016-10-11] MEDS: Lisinopril 20 MG TABLET PO SCH (08:55)
[2016-10-11] MEDS: amLODIPine 5 MG TABLET PO SCH (08:55)
[2016-10-11] MEDS: Aspirin 81 MG TAB.CHEW PO SCH (08:55)
--- NOTE | 2016-10-11 09:25 | Physician Discharge Referral ---
ExtendedCare Referral Info Transfer To: [facility] Provider in Charge after Transfer: PCP Institutional Level of Care: Skilled - Diagnosis (1) Syncope Priority: Primary Status: Resolved (2) Troponin level elevated Priority: Primary Status: Resolved (3) DVT prophylaxis Priority: Primary Status: Acute (4) Hypertension Priority: Secondary Status: Chronic (5) Insulin dependent diabetes mellitus Priority: Secondary Status: Chronic (6) Knee pain, bilateral Priority: Secondary Status: Chronic (7) Falls frequently Priority: Primary Status: Acute (8) UTI (urinary tract infection) Priority: Primary Status: Acute (9) KAITY (acute kidney injury) Priority: Primary Status: Resolved Prognosis: Good Aware of Diagnosis: Patient Aware of Prognosis: Patient - Transfer Medications Prescriptions: Gabapentin [Neurontin] 200 mg PO HS #30 Home Medications: Amitriptyline [Elavil] 25 mg PO HS 10/06/16 [History] Amlodipine Besylate 10 mg PO DAILY 10/06/16 [History] Letrozole [Femara] 2.5 mg PO DAILY 10/06/16 [History] Pravastatin Sodium [Pravachol] 80 mg PO HS 10/06/16 [History] Aspirin 81 mg PO DAILY 10/11/16 [Rx] Cefdinir [Omnicef] 300 mg PO BID #0 10/11/16 [Rx] Docusate [Colace] 100 mg PO BID PRN 10/11/16 [Rx] Gabapentin [Neurontin] 200 mg PO HS #30 10/11/16 [Rx] Insulin DETEMIR [Levemir] 22 unit SQ HS 10/11/16 [Rx] Lisinopril [Zestril] 40 mg PO DAILY tab 10/11/16 [Rx] Metoprolol [Lopressor] 25 mg PO BID tab 10/11/16 [Rx] Allergies/Adverse Reactions: Allergies metformin Allergy (Verified 10/06/16 17:52) Vomiting Penicillins Allergy (Verified 10/06/16 17:52) Anaphylaxis Sulfa (Sulfonamide Antibiotics) Allergy (Verified 10/06/16 17:52) Anaphylaxis - Respiratory Orders Smoking Cessation: Smoking cessation has been advised. For more information, call the [place] Tobacco Quit Line at 3-822-EVLJ-NOW. - Advance Directives Code Status: Full Code - Mobility Orders Ambulate - Rehabiliation Orders Rehab Orders: Evaluation for Physical Therapy - Diet Orders No Concentrated Sweets, Cardiac CERTIFICATION: I certify that the transfer of the above named patient to an Extended Care Facility is necessary for the continuing treatment of the diagnosis listed. The above information is true and accurate reflection of patient's current condition. Confidential - Redisclosure prohibited without a patient's written consent.
--- NOTE | 2016-10-11 09:25 | Discharge Summary ---
Date of Encounter: 10/12/16 Time of Encounter: 08:30 - Discharge Diagnosis (1) Syncope Priority: Primary Status: Resolved Qualifiers: Syncope type: unspecified Qualified Code(s): R55 - Syncope and collapse (2) Troponin level elevated Priority: Secondary Status: Resolved (3) DVT prophylaxis Priority: Secondary Status: Acute (4) Hypertension Priority: Secondary Status: Chronic Qualifiers: Hypertension type: essential hypertension Qualified Code(s): I10 - Essential (primary) hypertension (5) Insulin dependent diabetes mellitus Priority: Secondary Status: Chronic (6) Knee pain, bilateral Priority: Secondary Status: Chronic Qualifiers: Chronicity: chronic Qualified Code(s): M25.561 - Pain in right knee; M25.562 - Pain in left knee; G89.29 - Other chronic pain (7) Falls frequently Priority: Primary Status: Acute (8) UTI (urinary tract infection) Priority: Primary Status: Acute Qualifiers: Urinary tract infection type: acute cystitis Hematuria presence: with hematuria Qualified Code(s): N30.01 - Acute cystitis with hematuria (9) KAITY (acute kidney injury) Priority: Primary Status: Resolved - Discharge Medications Prescriptions: Gabapentin [Neurontin] 200 mg PO HS #30 Home Medications: Amitriptyline [Elavil] 25 mg PO HS 10/06/16 [History] Amlodipine Besylate 10 mg PO DAILY 10/06/16 [History] Letrozole [Femara] 2.5 mg PO DAILY 10/06/16 [History] Pravastatin Sodium [Pravachol] 80 mg PO HS 10/06/16 [History] Aspirin 81 mg PO DAILY 10/11/16 [Rx] Cefdinir [Omnicef] 300 mg PO BID #0 10/11/16 [Rx] Docusate [Colace] 100 mg PO BID PRN 10/11/16 [Rx] Gabapentin [Neurontin] 200 mg PO HS #30 10/11/16 [Rx] Insulin DETEMIR [Levemir] 22 unit SQ HS 10/11/16 [Rx] Lisinopril [Zestril] 40 mg PO DAILY tab 10/11/16 [Rx] Metoprolol [Lopressor] 25 mg PO BID tab 10/11/16 [Rx] Allergies/Adverse Reactions: Allergies metformin Allergy (Verified 10/06/16 17:52) Vomiting Penicillins Allergy (Verified 10/06/16 17:52) Anaphylaxis Sulfa (Sulfonamide Antibiotics) Allergy (Verified 10/06/16 17:52) Anaphylaxis Date of admission: 10/07/16 17:04 Primary care physician: Sydney Cruz Consults: 10/08/16 11:54 Consult to Orthopedic Surgery [CONS] Routine Consulting Provider: Jose Manuel Riggs Reason for Consult: severe bilateral knee pain. has not seen Ortho in past. Lg jt effusion on left. Please eval and advise thx. S/p right great toe amputation last year- could not complete PT 2/2 severe knee pain. Falling at home- not safe to return. Refusing PT until plan of care for knees is established. She has never seen Ortho Time Notified: 12:08 Call Completed: Yes Discharging clinician: Sanjeev Tolbert Anticipated date of discharge: 10/11/16 - Patient Status Disposition: Transfer SNF Condition: Fair Functional capacity at discharge: independent ambulation Overall status at discharge: patient is progressing back to baseline - Discharge Instructions Follow Up With: Ryland Garrett MD [Partnered Physician] - 10/13/16 12:50 pm Sydney Cruz MD [Primary Care Provider] - Additional Instructions: Follow up with your PCP and Orthopedics - Diet and Activity Activity: as per physical therapy Diet: diabetic diet, low fat, low cholesterol, low salt diet Interval History: See below Hospital course: Ms. Sargent is a 71 year old female who has a PMH of DM, Anxiety/Depression, HTN , Recurrent falls, s/p bladder stimulator for neurogenic bladder, recurrent UTIs She was admitted following an episode of witnessed syncope Work up for Syncope : -Echocardiography impressions: Normal LV systolic function, LVEF 70%. Mild concentric left ventricular hypertrophy. Mild left ventricular diastolic dysfunction. Normal right ventricular size and function. No significant valvular dysfunction. Unable to estimate RVSP due to lack of TR jet -C-Spine CT: No acute abnormality of the cervical spine. -Head CT: No acute intracranial abnormality,Chronic microvascular ischemic changes, Chronic lacunar infarction of the left caudate -Carotid doppler USS Bilateral proximal ICA has a severe, 60-79% stenosis.- Vascular surgery was consulted, no intervention planned , medical management She did have a UTI on UA and Urine culture grew E.coli resistant to several antibiotics but sensitive to Ceftriaxone She also had KAITY, which resolved promptly with IVF hydration PT/OT review recommended ECF Patient has been clinically stable, and is stable to be placed once socially cleared She requires at least 10 days of antibiotic therapy. Her blood pressure and blood sugar has been well controlled on the current regimen and she is discharged on same She has bilateral acute on chronic knee pain, which are as a result of fall and underlying OA. Her knee X-ray showed Tricompartmental degenerative changes bilaterally, right worse than left and Moderate to large left joint effusion. She was reviewed by Orthopedics in-patient and requires a follow up with them as out-patient. She is otherwise clinically stable - Time Spent with Patient Total time spent providing and/or coordinating discharge services: Greater than 30 minutes (>45 minutes spent on co-ordinating discharge as well as patient encounter, chart review and medication reconciliation and prescription) - Constitutional Vitals: Temp Pulse Resp BP Pulse Ox 97.5 F L 62 14 120/69 98 10/11/16 07:10/11/16 07:10/11/16 07:17 10/11/16 07:10/11/16 07:17 General appearance: Present: cooperative, A&O X 3, pleasant, no acute distress, answers questions appropriately - Head Head exam: Present: atraumatic, normocephalic - Eye Eye exam: Present: PERRL, conjuntiva pink, sclera anicteric Pupils: Present: PERRL - Neck Neck exam general surgery: Present: supple, trachea midline. Absent: lymphadenopathy - Respiratory Respiratory exam: Present: CTAB. Absent: accessory muscle use, rales, rhonchi, wheezes - Cardiovascular Cardiovascular exam: Present: RRR, +S1, +S2. Absent: diastolic murmur, gallop, rubs, systolic murmur - GI/Abdominal GI/Abdominal exam: Present: normal bowel sounds, soft, no peritoneal signs. Absent: distended, tenderness - Extremities Exam Extremities exam: Present: warm, radial pulses palpable and symetrical. Absent : calf tenderness, cyanotic, pedal edema Additional comments: s/p R big toe amputation - Neurological Exam Neurological exam: Present: alert, CN II-XII intact, oriented X3, no focal deficits. Absent: pronater drift, facial droop, speech deficit - Skin Skin exam: Present: dry, intact
--- NOTE | 2016-10-11 17:54 | Vascular/Endovasc Consult Note ---
Date of Encounter: 10/11/16 Time of Encounter: 16:45 Assessment and Plan (1) Asymptomatic stenosis of both carotid arteries without infarction Current Visit: Yes Status: Acute The patient has mid range bilateral asymptomatic 60-79% carotid artery stenosis. There is not a clear indication to proceed with arteriogram or testing since the patient has no focal motor neurologic deficits and suspected stenoses or under 80%. At this point I would recommend carotid artery duplex as an outpatient in my office in 3 months. The patient should be maintained on aspirin therapy. - History of Present Illness Consult date: 10/11/16 Consult reason: Syncope Chief complaint: Syncope History of present illness: Ms. Sargent is a 71 year old female With diabetes. She had a syncopal episode in a grocery store and fell injuring the upper part of her chest with abrasions and contusions. Prior to the episode she had no focal motor neurologic deficit. After the episode she had no focal motor neurologic deficit. She specifically denied aphasia or amaurosis fugax. She was evaluated in the emergency room. CAT scan of the head demonstrated an old stroke and no new findings. The patient was evaluated as an inpatient with carotid duplex evaluation. Peak systolic flow velocities in the right internal carotid artery were 206 cm/s. Peak systolic flow velocities in the left internal carotid artery were 165 cm/s. This is consistent with bilateral mid range 60-79% stenosis. In a patient with no focal motor neurologic deficit these appear to be asymptomatic carotid stenoses. The patient denies previous motor deficit. Past Med Surg Social Fam HX - Past Medical History Medical history: cancer, CVA, diabetes Psychiatric history: no psych history - Past Surgical History Surgical History: appendectomy, cancer surgery, cholecystectomy, orthopedic, other - Social History Smoking Status: Former smoker Smokeless Tobacco Status: No Alcohol use: none Drug use: none - Family History Mother Hx Family Neuromuscular Disorders: Yes (CEREBRAL VASCULAR ACCIDENT.) Medications and Allergies Amitriptyline [Elavil] 25 mg PO HS 10/06/16 [History] Amlodipine Besylate 10 mg PO DAILY 10/06/16 [History] Letrozole [Femara] 2.5 mg PO DAILY 10/06/16 [History] Pravastatin Sodium [Pravachol] 80 mg PO HS 10/06/16 [History] Aspirin 81 mg PO DAILY 10/11/16 [Rx] Cefdinir [Omnicef] 300 mg PO BID #0 10/11/16 [Rx] Docusate [Colace] 100 mg PO BID PRN 10/11/16 [Rx] Gabapentin [Neurontin] 200 mg PO HS #30 10/11/16 [Rx] Insulin DETEMIR [Levemir] 22 unit SQ HS 10/11/16 [Rx] Lisinopril [Zestril] 40 mg PO DAILY tab 10/11/16 [Rx] Metoprolol [Lopressor] 25 mg PO BID tab 10/11/16 [Rx] Allergies metformin Allergy (Verified 10/06/16 17:52) Vomiting Penicillins Allergy (Verified 10/06/16 17:52) Anaphylaxis Sulfa (Sulfonamide Antibiotics) Allergy (Verified 10/06/16 17:52) Anaphylaxis All Systems Review: A 10-system review of systems was performed and is negative for pertinent findings except as documented above in the HPI. Exam Vital Signs, Last 4 Hours Temp Pulse Resp BP Pulse Ox 10/11/16 15:31 97.7 F 72 14 163/55 99 General: Present: No Apparent Distress HEENT: Present: Atraumatic, Normocephaly, Trachea midline, Pupils equal Neck: Present: Other (No evidence of carotid bruit) Cardiac: Present: Reg Rate and Rhythm, Normal S1 and S2, No Murmur Lungs: Present: Normal Breath Sounds, No Wheeze, Rales, Rhonchi Neuro: Present: Alert and responsive, No focal deficits noted, Cranial nerves grossly intact Abdomen: Present: Soft, Non-tender Vascular: Present: Other (No evidence of carotid bruit. Normal carotid pulse) Skin: Present: No rashes noted on visualized skin Musculoskeletal: Present: No Chest Wall Tenderness Consult Discharge Plan - Plan Additional Instructions: Follow up with your PCP and Orthopedics Referrals: Ryland Garrett MD [Partnered Physician] - 10/13/16 12:50 pm Sydney Cruz MD [Primary Care Provider] - Prescriptions: Gabapentin [Neurontin] 200 mg PO HS #30
[2016-10-11] MEDS: Gabapentin 100 MG CAPSULE PO SCH (20:17)
[2016-10-11] MEDS: Insulin DETEMIR 100 UNIT/ML X5UNITS SQ SCH (20:18)
[2016-10-12] MEDS: *HR* Heparin 5,000 UNIT/ML VIAL SQ SCH (06:17)
[2016-10-12] MEDS: Insulin LISPRO 300 UNITS/3 ML VIAL SQ SCH ×3 (07:57→18:26)
[2016-10-12] MEDS ORDERED: Cefdinir 300 MG CAPSULE PO SCH (09:00)
--- NOTE | 2016-10-12 09:25 | Event Note ---
Date of Encounter: 10/12/16 Time of Encounter: 15:51 Seen and evaluated at bedside NO new complains Still awaiting social clearance Medically cleared for discharge Physical exam unremarkable, vitals are stable NO labs, no indications for any Continue current management
[2016-10-12] MEDS: amLODIPine 5 MG TABLET PO SCH (09:37)
[2016-10-12] MEDS: Lisinopril 20 MG TABLET PO SCH (09:37)
[2016-10-12] MEDS: Letrozole 2.5 MG TABLET PO SCH (09:37)
[2016-10-12] MEDS: Aspirin 81 MG TAB.CHEW PO SCH (09:37)
[2016-10-12 15:49] VITALS: BP 159/69
== END 2016-10-12 19:36 | DRG 312 ==
LOC: EMEROO 17:24 → 3BNU 17:24 → SUATTDRO 10-07 17:04
PROVIDERS: ADMIT Internal Medicine Hematology & Oncology; ATTEND Internal Medicine